=== PATIENT | male | born 1985 | race Caucasian/White ===

== ENCOUNTER 2021-10-04 13:16 | Outpatient (CLI) | payer OTHER ==
--- NOTE | 2021-10-04 14:23 | XRay Report ---
CHEST 2 VIEWS INDICATION / CLINICAL INFORMATION: TB CLEARANCE. COMPARISON: None available. FINDINGS: SUPPORT DEVICES: None. HEART / MEDIASTINUM: No significant abnormality. LUNGS / PLEURA: No significant pulmonary or pleural abnormality. No pneumothorax. ADDITIONAL FINDINGS: No significant additional findings. IMPRESSION: 1. No acute findings. No findings to suggest pulmonary tuberculosis. Signer Name: Abdiaziz Dubois Jr, MD Signed: 10/04/2021 2:18 PM Workstation Name: [id number]
== END 2021-10-04 13:17 | disposition home or self-care (01) ==
LOC: XRAY 13:16
PROVIDERS: ATTEND Family Medicine
DX: N20.0 Calculus of kidney (principal); Z79.899 Other long term (current) drug therapy
CPT/HCPCS: 71046